=== PATIENT | female | born 1950 | race Caucasian/White ===

== ENCOUNTER 2020-01-03 22:07 | Emergency (ER) | payer MEDICARE, OTHER ==
--- NOTE | 2020-01-03 22:59 | EDM.PDOC ---
ED HPI GENERAL MEDICAL PROBLEM - General Chief Complaint: Lower Extremity Injury/Pain Stated Complaint: LEFT FOOT SWELLING/REDNESS Time Seen by Provider: 01/03/20 22:44 Source of Information: Reports: Patient, RN Notes Reviewed History Limitations: Reports: No Limitations - History of Present Illness INITIAL COMMENTS - FREE TEXT/NARRATIVE: 69-year-old female presents emergency department a complaint of red and purple- colored toes left greater than right. She states she is never had this problem before just noticed it today she has been wearing sandals most of the day it is getting cooler in the evening did walk through some grass but nothing taller unusual does have the sensation of [id number] in the left toes but no overt pain. No other symptoms shortness of breath nausea vomiting chest pain does have a past medical history of an arrhythmia on Betapace with valve replacement as well as dyslipidemia - Related Data Allergies Allergy/AdvReac Type Severity Reaction Status Date / Time decongestants Allergy Tachycardia Uncoded 01/03/20 22:22 Home Meds: Home Meds Aspirin [Halfprin] 81 mg PO DAILY 01/03/20 [History] Metoprolol Succinate 25 mg PO BID 01/03/20 [History] Sotalol [Betapace, Sorine] 40 mg PO BID 01/03/20 [History] atorvaSTATin [Lipitor] 80 mg PO DAILY 01/03/20 [History] Past Medical History HEENT History: Reports: Impaired Vision Cardiovascular History: Reports: High Cholesterol CAPABILITY LEAD History: Reports: , Spontaneous Musculoskeletal History: Reports: Back Pain, Chronic Neurological History: Reports: Concussion Psychiatric History: Reports: Depression Endocrine/Metabolic History: Reports: Obesity/BMI 30+ - Infectious Disease History Infectious Disease History: Reports: Chicken Pox - Past Surgical History Head Surgeries/Procedures: Reports: None HEENT Surgical History: Reports: Cataract Surgery Cardiovascular Surgical History: Reports: Cardiac Ablation, Other (See Below) Other Cardiovascular Surgeries/Procedures: valve repair Endocrine Surgical History: Reports: None Neurological Surgical History: Reports: None Musculoskeletal Surgical History: Reports: None Dermatological Surgical History: Reports: None Social & Family History - Tobacco Use Smoking Status *Q: Never Smoker Second Hand Smoke Exposure: No - Caffeine Use Caffeine Use: Reports: None - Recreational Drug Use Recreational Drug Use: No Review of Systems - Review of Systems Review Of Systems: See Below Constitutional: Reports: No Symptoms Eyes: Reports: No Symptoms Ears: Reports: No Symptoms Nose: Reports: No Symptoms Mouth/Throat: Reports: No Symptoms Respiratory: Reports: No Symptoms Cardiovascular: Reports: No Symptoms GI/Abdominal: Reports: No Symptoms Musculoskeletal: Reports: No Symptoms Skin: Reports: Change in Color Neurological: Reports: Numbness, Tingling ED EXAM, GENERAL - Physical Exam Exam: See Below Free Text/Narrative:: Examination of the feet I do not appreciate any lesions initial examination the feet are hanging over the bed pedal pulses +2 bilaterally there is discoloration of the forefoot and toes purple predominantly no erythema left is greater than right however when the feet are raised both color and capillary refill improve capillary refill is significantly delayed with the feet hanging over the edge of the exam table Exam Limited By: No Limitations General Appearance: Alert, WD/WN, No Apparent Distress Respiratory/Chest: No Respiratory Distress Course - Vital Signs Last Recorded V/S: Last Vital Signs Temp 97.6 F 01/03/20 22:23 Pulse 80 01/03/20 22:23 Resp 16 01/03/20 22:23 BP 140/60 01/03/20 22:23 Pulse Ox 100 01/03/20 22:23 - Orders/Labs/Meds Labs: Laboratory Tests 01/03/20 01/03/20 01/03/20 Range/Units 23:00 23:00 23:00 WBC 6.4 (4.5-11.0) K/uL RBC 4.18 (3.30-5.50) M/uL Hgb 13.2 (12.0-15.0) g/dL Hct 41.7 (36.0-48.0) % MCV 100 H (80-98) fL MCH 32 H (27-31) pg MCHC 32 (32-36) % Plt Count 191 (150-400) K/uL Neut % (Auto) 65 (36-66) % Lymph % (Auto) 23 L (24-44) % Brooks % (Auto) 10 H (2-6) % Eos % (Auto) 2 (2-4) % Baso % (Auto) 0 (0-1) % PT (9.5-12.0) sec INR (0.80-1.20) APTT (27.0-36.0) sec D-Dimer, Quantitative 345 (0.0-400.0) ng/mL Sodium 141 (140-148) mmol/L Potassium 4.3 (3.6-5.2) mmol/L Chloride 105 (100-108) mmol/L Carbon Dioxide 28 (21-32) mmol/L Anion Gap 8.0 (5.0-14.0) mmol/L BUN 21 H (7-18) mg/dL Creatinine 0.9 (0.6-1.0) mg/dL Est Cr Clr Drug Dosing 61.65 mL/min Estimated GFR (MDRD) > 60 (>60) Glucose 104 (74-106) mg/dL Calcium 8.7 (8.5-10.1) mg/dL Total Bilirubin 0.5 (0.2-1.0) mg/dL AST 29 (15-37) U/L ALT 46 (12-78) U/L Alkaline Phosphatase 64 (46-116) U/L Total Protein 7.3 (6.4-8.2) g/dL Albumin 3.5 (3.4-5.0) g/dL Globulin 3.8 H (2.3-3.5) g/dL Albumin/Globulin Ratio 0.9 L (1.2-2.2) 01/03/20 01/03/20 Range/Units 23:00 23:00 WBC (4.5-11.0) K/uL RBC (3.30-5.50) M/uL Hgb (12.0-15.0) g/dL Hct (36.0-48.0) % MCV (80-98) fL MCH (27-31) pg MCHC (32-36) % Plt Count (150-400) K/uL Neut % (Auto) (36-66) % Lymph % (Auto) (24-44) % Brooks % (Auto) (2-6) % Eos % (Auto) (2-4) % Baso % (Auto) (0-1) % PT 10.8 (9.5-12.0) sec INR 1.00 (0.80-1.20) APTT 25.7 L (27.0-36.0) sec D-Dimer, Quantitative (0.0-400.0) ng/mL Sodium (140-148) mmol/L Potassium (3.6-5.2) mmol/L Chloride (100-108) mmol/L Carbon Dioxide (21-32) mmol/L Anion Gap (5.0-14.0) mmol/L BUN (7-18) mg/dL Creatinine (0.6-1.0) mg/dL Est Cr Clr Drug Dosing mL/min Estimated GFR (MDRD) (>60) Glucose (74-106) mg/dL Calcium (8.5-10.1) mg/dL Total Bilirubin (0.2-1.0) mg/dL AST (15-37) U/L ALT (12-78) U/L Alkaline Phosphatase (46-116) U/L Total Protein (6.4-8.2) g/dL Albumin (3.4-5.0) g/dL Globulin (2.3-3.5) g/dL Albumin/Globulin Ratio (1.2-2.2) Departure - Departure Time of Disposition: 00:33 Disposition: Home, Self-Care 01 Condition: Fair Clinical Impression: Discoloration of skin of multiple sites of lower extremity - Discharge Information Referrals: PCP,None [Primary Care Provider] - Forms: ED Department Discharge Additional Instructions: Follow-up with your primary care upon return home, call return to the emergency department worsening of symptoms Sepsis Event Note - Evaluation Sepsis Screening Result: No Definite Risk - Focused Exam Vital Signs: Vital Signs Temp Pulse Resp BP Pulse Ox 01/03/20 22:23 97.6 F 80 16 140/60 100 Date Exam was Performed: 01/04/20 Time Exam was Performed: 00:33 - Assessment/Plan Plan: Assessment Acuity = acute Site and laterality = discoloration lower extremities Etiology = unknown Manifestations = none Location of injury = Home Lab values = CBC, CMP, d-dimer, INR and PTT all within normal limits Plan She will follow-up with her primary care upon return home This note was dictated using [employer] voice recognition software please call with any questions on syntax or grammar.
== END 2020-01-04 00:50 | disposition home or self-care (01) ==
LOC: JP.ED 22:07
DX: L81.9 Disorder of pigmentation, unspecified (principal); E66.9 Obesity, unspecified; E78.00 Pure hypercholesterolemia, unspecified; Z79.82 Long term (current) use of aspirin; Z79.899 Other long term (current) drug therapy; Z68.33 Body mass index [BMI] 33.0-33.9, adult
CPT/HCPCS: 36415; 80053; 85025; 85379; 85610; 85730; 99283